=== PATIENT | male | born 1960 | race Caucasian/White ===

== ENCOUNTER → 2017-08-24 09:19 | Outpatient (CLI) | payer BC | END | disposition home or self-care (01) | LOC: D.US 09:19 | DX: R10.9 Unspecified abdominal pain (principal); M54.9 Dorsalgia, unspecified ==

== ENCOUNTER → 2017-09-07 08:19 | Outpatient (CLI) | payer BC | END | disposition home or self-care (01) | LOC: D.CT 08:19 | DX: R93.8 Abnormal findings on diagnostic imaging of other specified body structures (principal); N28.9 Disorder of kidney and ureter, unspecified ==

== ENCOUNTER → 2017-11-02 15:14 | Outpatient (CLI) | payer BC | END | disposition home or self-care (01) | LOC: D.MRI 15:14 | DX: M25.562 Pain in left knee (principal) ==